=== PATIENT | female | born 1940 | race Caucasian/White ===

== ENCOUNTER → 2024-02-20 13:50 | Outpatient (REF) | payer OTHER, SELFPAY | LOC: HWRAD 13:50 | PROVIDERS: ATTENDING PHYSICIAN Neurological Surgery; FAMILY PHYSICIAN Internal Medicine | DX: G91.2 (Idiopathic) normal pressure hydrocephalus (principal) | CPT/HCPCS: 70450 ==

== ENCOUNTER → 2024-05-25 13:26 | Outpatient (REF) | payer OTHER, SELFPAY ==
[2024-05-25 16:55] LABS: Blood Urea Nitrogen 15 mg/dl (7-17)
== END ==
LOC: REG 13:26
PROVIDERS: ATTENDING PHYSICIAN Internal Medicine
DX: R10.9 Unspecified abdominal pain (principal)
CPT/HCPCS: 36415; 82565; 84520

== ENCOUNTER → 2024-05-26 07:51 | Outpatient (REF) | payer OTHER, SELFPAY | LOC: RAD 07:51 | PROVIDERS: ATTENDING PHYSICIAN Internal Medicine | DX: R10.9 Unspecified abdominal pain (principal) | CPT/HCPCS: 74177; Q9967 ==

== ENCOUNTER → 2024-05-31 12:37 | Outpatient (REF) | payer OTHER, SELFPAY | LOC: RCS 12:37 | PROVIDERS: ATTENDING PHYSICIAN Internal Medicine | DX: I10 Essential (primary) hypertension (principal); I47.10 Supraventricular tachycardia, unspecified | CPT/HCPCS: 93225; 93226 ==

== ENCOUNTER 2024-06-15 12:51 | Emergency (ER) | payer OTHER, SELFPAY ==
[2024-06-15 12:59] VITALS: BP 175/85
[2024-06-15 13:14] VITALS: BP 182/63
--- NOTE | 2024-06-15 13:21 | ED.GENMED ---
History of Present Illness
<Amanda Herrera NP - Last Filed: 06/17/24 23:45>
General
Chief Complaint: Chest Pain
Source: patient
Exam Limitations: none
Time Seen by Provider: 06/15/24 13:12
Nursing documentation reviewed up to this point in time: agreed with
History of Present Illness
History of Present Illness:
Patient to ED with complaint of left chest pain radiating to right shoulder. Symptoms started 1 hour ago while bowling. No n/v/diaphoresis. No dizziness or blurred vision. States pain was sharp initially but now feels like a fullness. Drove
self to ED for eval. States she had similar pain approx 1 mos ago and was evaluated by PCP. States she was diagnosed with GERD and placed on pantoprozole. States PCP ordered a holter monitor for her which she wore last week. PCP told her that
her HR dropped into the 30's at times and advised her to f/u with cardiololgy. SHe tried to make appointment yesterday but did not 'get thru'. Reports normal echo and stress test 'a few years ago'.
Past History
<Amanda Herrera ROAD CLEANER - Last Filed: 06/17/24 23:45>
Past History
ED Past Medical History: Arrthythmia (Paroxysmal SVT), Cancer (Bladder), GERD, HTN and Other (Normal pressure hydrocephalus, temporal arteritis)
ED Past Surgical History: Bowel resection and Other (Bladder polypectomy)
Social History
Tobacco: Former smoker
Alcohol: None
Personal:
Living: alone
Employment: Retired
Family History
Family History: Other (SLE in sister)
Review of Systems
<Amanda Herrera ROAD CLEANER - Last Filed: 06/17/24 23:45>
Review of Systems
Allergies reviewed?: Yes
All Other Systems: ROS reviewed and negative except as documented in HPI and ROS
Constitutional: Reports no symptoms
EENT: Reports no symptoms
Respiratory: Reports no symptoms
Cardiac: Reports chest pain
ABD/GI: Reports no symptoms
: Reports no symptoms
Musculoskeletal: Reports no symptoms
Skin: Reports no symptoms
Neurological: Reports no symptoms
Psychiatric: Reports no symptoms
Phy Exam
<Amanda Herrera NP - Last Filed: 06/17/24 23:45>
General Physical Exam
General Presentation: well appearing and no apparent distress
General age: appears stated age
General Skin: warm and dry
General Habitus: normal
Cardiovascular Exam
Cardiovascular Exam: regular rate/rhythm and no edema
Pulmonary Exam
Pulmonary Exam: lungs clear and no respiratory distress
Gastrointestinal Exam
Gastrointestinal Exam: normal bowel sounds, non tender and soft
Musculoskeletal Exam
Musculoskeletal Exam: full ROM
Skin Exam
Skin Exam: normal color and warm/dry
Psychiatric Exam
Psychiatric Exam: normal mood/affect
Scores
<Amanda Herrera NP - Last Filed: 06/17/24 23:45>
Heart Score for Chest Pain Patients
STEMI patient?: No
History: Moderately Suspicious
ECG: Normal
Age: >/= 65 years
Risk Factors: 1 or 2 Risk Factors
Troponin: </= Normal Limit
Heart Score for Chest Pain Patients: 4
Heart Score Risk: 20.3% MACE over next 6 weeks
Course
<Amanda Herrera NP - Last Filed: 06/17/24 23:45>
Orders/Labs/Results
Orders:
Orders
06/15/24 12:52
ECG [Electrocardiogram (*1)] Urgent
Reason for Study: Chest Pain
EKG- Treatment ONCE
06/15/24 13:20
Nitroglycerin Sublingual [Nitrostat (Sublingual)] 0.4 mg SL NOW STA
06/15/24 13:43
Complete Blood Count/With Diff Urgent
Comprehensive Metabolic Panel Urgent
Lipase Urgent
Troponin I Urgent
06/15/24 15:23
Urinalysis Reflex To Culture Urgent
Date Specimen was Collected: 06/15/24
Time Specimen was Collected: 15:06
Urine Microscopic Reflex Cult Urgent
Urine Culture Urgent
SIMONA Source: U
Specimen Description:
Date Specimen was Collected: 06/15/24
Time Specimen was Collected: 15:06
06/15/24 16:40
Troponin I Urgent
Abnormal Lab Results
06/15/24
15:23
Leukocyte Esterase Rfl 1+ A
(Negative)
Urine WBC (Reflex) 11-15 A /HPF
(0-5)
06/15/24 13:43
06/15/24 13:43
Vital Signs
Initial and Last Documented VS:
Initial Vital Signs
Temp Pulse Resp BP Pulse Ox
98.7 F 64 16 175/85 95
06/15/24 12:59 06/15/24 12:59 06/15/24 12:59 06/15/24 12:59 06/15/24 12:59
Last Documented Vital Signs
Temp Pulse Resp BP Pulse Ox
98.7 F 90 24 155/72 95
06/15/24 12:59 06/15/24 16:27 06/15/24 16:27 06/15/24 17:27 06/15/24 17:28
<Ronni Candelaria, DO - Last Filed: 06/15/24 14:54>
Orders/Labs/Results
Orders:
Orders
06/15/24 12:52
ECG [Electrocardiogram (*1)] Urgent
Reason for Study: Chest Pain
EKG- Treatment ONCE
06/15/24 13:20
Nitroglycerin Sublingual [Nitrostat (Sublingual)] 0.4 mg SL NOW STA
06/15/24 13:43
Complete Blood Count/With Diff Urgent
Comprehensive Metabolic Panel Urgent
Lipase Urgent
Troponin I Urgent
06/15/24 15:23
Urinalysis Reflex To Culture Urgent
Date Specimen was Collected: 06/15/24
Time Specimen was Collected: 15:06
Urine Microscopic Reflex Cult Urgent
Urine Culture Urgent
SIMONA Source: U
Specimen Description:
Date Specimen was Collected: 06/15/24
Time Specimen was Collected: 15:06
06/15/24 16:40
Troponin I Urgent
Abnormal Lab Results
06/15/24
15:23
Leukocyte Esterase Rfl 1+ A
(Negative)
Urine WBC (Reflex) 11-15 A /HPF
(0-5)
06/15/24 13:43
06/15/24 13:43
Vital Signs
Initial and Last Documented VS:
Initial Vital Signs
Temp Pulse Resp BP Pulse Ox
98.7 F 64 16 175/85 95
06/15/24 12:59 06/15/24 12:59 06/15/24 12:59 06/15/24 12:59 06/15/24 12:59
Last Documented Vital Signs
Temp Pulse Resp BP Pulse Ox
98.7 F 90 24 155/72 95
06/15/24 12:59 06/15/24 16:27 06/15/24 16:27 06/15/24 17:27 06/15/24 17:28
<Amanda Herrera NP - Last Filed: 06/17/24 23:45>
*Radiology
Radiology exam reviewed: radiology read reviewed
*Pulse Oximetry
Patient hypoxic: no
*EKG
Interpretation: normal
Rate: normal
Rhythm: sinus
*Critical Care Note
Total Time (30-74mins, 75-104mins- exclusive of procedures): Not Applicable
<Amanda Herrera NP - Last Filed: 06/17/24 23:45>
Update Note
Update Note:
Lab results EKG discussed with patient. SHe has remained symptom free in dept. Troponin neg x 2. Will discharge home and she will follo wup with cardiology. given instructions on s/s to return to ED and she is agreeable to plan
ED Attending Note
<Amanda Herrera NP - Last Filed: 06/17/24 23:45>
-
Portions of this chart may have been created with voice recognition software.� Occasional wrong word or��sound alike� substitutions may have occurred due to the inherent limitations of voice recognition software.
<Ronni Candelaria DO - Last Filed: 06/15/24 14:54>
ED Attending Note
Patient seen and examined by attending physician: Yes
I performed a history and physical exam of patient and discussed management with resident, I reviewed resident's note and agree with documented findings and plan of care.: Yes
ED Attending Note:
I have reviewed and agree with history and treatment plan by Amanda Herrera. My exam revealed 83-year-old female no acute distress, denies any pain at this time. Initial troponin negative, EKG without ischemia. Repeat troponin, if negative,
patient is requested to follow-up with.
Discharge Plan
Departure
Patient Disposition: Home (Routine Discharge)
Date of Disposition: 06/15/24
Time of Disposition: 17:20
Patient with high blood pressure during this ER visit?: No
Condition: Good
Covid-19: Not Applicable
Discharge Problem:
Chest pain
Instructions: Chest Pain DCA Follow Up
Prescriptions:
No Action
aspirin [Ecotrin Low Strength] 81 MG tablet,delayed release (DR/EC)
81 mg PO DAILY
atorvastatin 20 mg Tablet
20 mg PO DAILY
verapamil 240 mg Tablet Extended Release
240 mg PO DAILY
zoledronic [id number] [Reclast] 5 mg/100 mL Piggyback
5 mg IV ONCE
cholecalciferol (vitamin D3) [Vitamin D3] 25 mcg (1,000 unit) Tablet,Chewable
150 mcg PO DAILY
Calcium + D
2 tab PO DAILY
pantoprazole [Protonix] 40 mg tablet,delayed release (DR/EC)
40 mg PO DAILY Qty: 30 0RF
Referrals:
Migdalia Rollins MD [Family Provider] -
Activity Restrictions/Additional Instructions:
Return to the emergency department immediately for any changes in/worsening of your symptoms
Interventions
Interventions:
*Risk Screen - Suicide Last Done: 06/15/24 13:40
*General Assessment Last Done: 06/15/24 13:40
*Neglect/Abuse Screening Last Done: 06/15/24 13:40
*ED COVID-19 Vaccine History Last Done: 06/15/24 13:40
*Nursing Disposition Last Done: 06/15/24 17:31
ED- Cardiac Assessment Last Done: 06/15/24 13:41
Discharge Date and Time
Discharge Date/Time: 06/15/24 17:31
Print Language: KITTITIAN
[2024-06-15 13:52] LABS: % Basophils 0.7 % (0-2); % Eosinophils 1.1 % (0-6); % Immature Granulocytes 0.2 % (0-0.5); % Lymphocytes 25.1 % (20.5-51.1); % Monocytes 7.2 % (1.7-9.3); % Neutrophils 65.7 % (42.2-75.2); Absolute Basophils 0.1 10^3/uL (0-0.2); Absolute Eosinophils 0.1 10^3/uL (0-0.7); Absolute Monocytes 0.6 10^3/uL (0.1-0.6); Absolute Neutrophils 5.3 10^3/uL (1.4-6.5); Hemoglobin 14.2 g/dL (12.0-16.0); Mean Corp Hgb Conc. 34.6 g/dL (33.0-37.0); Mean Corpuscular Hgb 30.8 pg (27.0-31.0); Mean Corpuscular Volume 88.9 fL (81.0-99.0); Mean Platelet Volume 9.4 fL (7.4-10.4); Nucleated Red Blood Cells % 0 %; Platelet Count 318 10^3/uL (130-400); Red Blood Cell Count 4.61 10^6/uL (4.20-5.40); Red Cell Dist. Width 13.6 % (11.5-14.5); White Blood Cell Count 8.1 10^3/uL (4.8-10.8)
[2024-06-15 14:07] LABS: ALT (SGPT) 20 U/L (0-35); AST (SGOT) 29 U/L (14-36); Albumin 4.2 g/dl (3.5-5.0); Alkaline Phosphatase 103 U/L (38-126); Blood Urea Nitrogen 14 mg/dl (7-17); Calcium 9.8 mg/dl (8.4-10.2); Carbon Dioxide 25 mmol/L (22-30); Chloride 106 mmol/L (98-107); Glucose 98 mg/dl (70-99); Lipase 102 U/L (23-300); Potassium 4.4 mmol/L (3.5-5.1); Sodium 140 mmol/L (135-145); Total Bilirubin 1.1 mg/dl (0.2-1.3); Total Protein 6.8 g/dl (6.3-8.2); eGFR > 60.00
[2024-06-15 14:19] LABS: Troponin I < 0.012 ng/ml
[2024-06-15 15:21] VITALS: BP 145/102
[2024-06-15 15:51] LABS: Urine Albumin Negative (Neg - Trace); Urine Bilirubin Negative (Negative); Urine Character Clear (Clear); Urine Color Yellow; Urine Glucose Negative (Negative); Urine Ketone Negative (Negative); Urine Leukocyte 1+ (Negative); Urine Nitrite Negative (Negative); Urine Occult Blood Negative (Negative); Urine Urobilinogen Negative (Neg - 1+)
[2024-06-15 16:00] VITALS: BP 117/52
[2024-06-15 16:05] LABS: Urine Red Blood Cell 0-2 /HPF (0-2)
[2024-06-15 17:13] LABS: Troponin I < 0.012 ng/ml
[2024-06-15 17:27] VITALS: BP 155/72
== END 2024-06-15 17:31 | disposition home or self-care (01) ==
LOC: EMR 12:51
PROVIDERS: Nurse Practitioner; EMERGENCY PHYSICIAN Emergency Medicine; FAMILY PHYSICIAN Internal Medicine
DX: R07.89 Other chest pain (principal); K21.9 Gastro-esophageal reflux disease without esophagitis; Z87.891 Personal history of nicotine dependence
CPT/HCPCS: 99284; 80053; 81003; 81015; 83690; 84484; 85025; 87086; 93005

== ENCOUNTER → 2024-06-30 08:36 | Outpatient (REF) | payer OTHER, SELFPAY | LOC: HWRAD 08:36 | PROVIDERS: ATTENDING PHYSICIAN Internal Medicine | DX: N83.202 Unspecified ovarian cyst, left side (principal) | CPT/HCPCS: 76830; 76856 ==

== ENCOUNTER → 2024-07-01 11:23 | Outpatient (REF) | payer OTHER, SELFPAY | LOC: DHCBC/DCA 11:23 | PROVIDERS: ATTENDING PHYSICIAN Internal Medicine Cardiovascular Disease; FAMILY PHYSICIAN Internal Medicine | DX: I10 Essential (primary) hypertension (principal); R07.89 Other chest pain | CPT/HCPCS: 78452; 93017; A9500; J2785 ==

== ENCOUNTER → 2024-07-05 07:54 | Outpatient (REF) | payer OTHER, SELFPAY | LOC: HWRCS 07:54 | PROVIDERS: ATTENDING PHYSICIAN Internal Medicine Cardiovascular Disease; FAMILY PHYSICIAN Internal Medicine | DX: I10 Essential (primary) hypertension (principal); R07.89 Other chest pain | CPT/HCPCS: 93306 ==

== ENCOUNTER → 2025-01-05 09:30 | Outpatient (REF) | payer OTHER, SELFPAY | LOC: HWRAD 09:30 | PROVIDERS: ATTENDING PHYSICIAN Advanced Practice Midwife; FAMILY PHYSICIAN Internal Medicine; REFERRING PHYSICIAN Internal Medicine Cardiovascular Disease | DX: N83.202 Unspecified ovarian cyst, left side (principal); I42.8 Other cardiomyopathies; J45.909 Unspecified asthma, uncomplicated | CPT/HCPCS: 76830; 76856 ==

== ENCOUNTER 2025-03-29 05:49 | Day surgery (SDC) | payer OTHER, SELFPAY ==
[2025-03-29] VITALS (8 sets, daily range): BP systolic 90–147; BP diastolic 47–89; BMI 27.6
[2025-03-29] MEDS: TYLENOL 1000 MG PO (06:21)
[2025-03-29] MEDS: NEURONTIN 100 MG PO (06:21)
[2025-03-29] MEDS: NORMOSOL-R/PLASMALYTE-A 1000 IV (06:28)
--- NOTE | 2025-03-29 08:04 | W.IMMPOSTOP ---
Surgical Immed Post Op Note
-
Primary Surgeon: Leobardo Maguire DO
Assisting Surgeon: n/a
Pre-op Diagnosis: Thickened endometrial lining on ultrasound
Post-op Diagnosis: Thickened endometrial lining on ultrasound; endometrial polyp
Procedure Performed: Diagnostic hysteroscopy D&C with polypectomy (MyoSure)
Anesthesia Type: General LMA
Specimen / Cultures: 1. Endocervical curettings 2. Endometrial curettings with fragments of polyp (excised sharply) and resected polyp fragments in bag
Estimated Blood Loss: Less than 5 mL
Fluid deficit 130 mL normal saline solution
Complications: None
Operative Findings: Uterus sounded to 6 cm. Endometrial polyp noted. Endometrial cavity otherwise appears normal. Bilateral tubal ostia visualized.
Counts correct x 2
== END 2025-03-29 09:10 | disposition home or self-care (01) ==
LOC: SDS 05:49
PROVIDERS: ATTENDING PHYSICIAN Obstetrics & Gynecology; FAMILY PHYSICIAN Internal Medicine
DX: N84.0 Polyp of corpus uteri (principal); R93.5 Abnormal findings on diagnostic imaging of other abdominal regions, including retroperitoneum
CPT/HCPCS: 58558; 88305; 86850; 86900; 86901

== ENCOUNTER 2025-07-19 06:04 | Day surgery (SDC) | payer OTHER, SELFPAY ==
[2025-07-19] VITALS (14 sets, daily range): BP systolic 90–124; BP diastolic 30–70; BMI 28.3
[2025-07-19] MEDS: NEURONTIN 300 MG PO (07:11)
[2025-07-19] MEDS: TYLENOL 1000 MG PO (07:12)
[2025-07-19] MEDS: NORMOSOL-R/PLASMALYTE-A 1000 IV (07:13)
[2025-07-19] MEDS: EMEND 40 MG PO (07:49)
[2025-07-19] MEDS: DILAUDID 0.25 MG IV (10:02)
--- NOTE | 2025-07-19 12:32 | W.IMMPOSTOP ---
Addendum entered and electronically signed by Adriana Maguire DO 07/19/25 23:33:
shunt noted in abdominal cavity away from area of our dissection. 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
There were some omental adhesions along midline above umbilicus noted.
Original Note:
Surgical Immed Post Op Note
-
Primary Surgeon: dAriana Maguire DO
Winch Derrick Operator: JACIEL Ann
Pre-op Diagnosis: Left adnexal cyst
Post-op Diagnosis: left paratubal cyst
Procedure Performed: Robotic laparoscopic bilateral salpingo-oopherectomy, lysis adhesions, pelvic washings.
Anesthesia Type: general ET Dr. Tariq
Specimen / Cultures: bilateral tubes, left paratubal cyst, bilateral ovaries.
Estimated Blood Loss: 5ml
Complications: none
Operative Findings: Normal appearing uterus. Atrophic but otherwise normal appearing ovaries and right tubes. Left tube contains a large left paratubal cyst approximately 7 cm
Adhesions of sigmoid colon to posterior uterus. Some mild adhesions of right ovary to posterior uterus.
Counts correct times 2.
Stable to recovery.
== END 2025-07-19 12:21 | disposition home or self-care (01) ==
LOC: SDS 06:04
PROVIDERS: ATTENDING PHYSICIAN Obstetrics & Gynecology; FAMILY PHYSICIAN Internal Medicine
DX: N83.332 Acquired atrophy of left ovary and fallopian tube (principal); N83.331 Acquired atrophy of right ovary and fallopian tube; N83.8 Other noninflammatory disorders of ovary, fallopian tube and broad ligament; N85.8 Other specified noninflammatory disorders of uterus; K66.0 Peritoneal adhesions (postprocedural) (postinfection)
CPT/HCPCS: 58661; 86850; 86900; 86901; 88112; 88305; 93005